=== PATIENT | male | born 1975 | race Caucasian/White ===

== ENCOUNTER 2017-06-23 21:02 | Emergency (ER) | payer SELFPAY ==
[~2017-06-23] VITALS: Ht 188 cm; Wt 106.0 kg
[~2017-06-23 21:02] MED LIST: DOXY100T PO
[2017-06-23 21:11] VITALS: BP 152/55; PULSE 62; RESP 16; TEMP 98.9; O2SAT 99
[2017-06-23] MEDS ORDERED: BACT800T5 PO (22:24)
--- NOTE | 2017-06-23 22:24 | PD ---
HPI Chief Complaint: Skin Problem Time Seen by Provider: 22:19 Travel History International Travel<30 days: No Contact w/Intl Traveler<30days: No Traveled to known affect area: No History of Present Illness HPI 41-year-old male presents to the emergency room for evaluation of abscess to his left buttocks for the past several days. States it has been getting worse every day. It is painful. He has not taken anything for pain. Patient denies fever, chills, nausea, vomiting, or spontaneous drainage. States he is in sober house and may have picked up something there. 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 Afebrile. Ambulatory. SKIN: Focused skin assessment warm/dry. There is an indurated area in the left medial buttocks which measures about 4 cm in diameter. It is fluctuant but there is no pointing or drainage. There is a zone of inflammation around it but no lymphangitis. HEAD: Normocephalic. EYES: No scleral icterus. No injection or drainage. NECK: Supple, trachea midline. No JVD or lymphadenopathy. CARDIOVASCULAR: Regular rate and rhythm without murmurs, gallops, or rubs. RESPIRATORY: Breath sounds equal bilaterally. No accessory muscle use. PSYCHIATRIC: No delusional thought processes. No hallucinations. Data Data Last Documented VS Vital Signs Date Time Temp Pulse Resp B/P (MAP) Pulse Ox O2 Delivery O2 Flow Rate FiO2 06/23/17 21:11 98.9 62 16 152/55 (87) 99 Orders Orders Lidocaine 1% Inj (50 Ml) (Xylocaine 1% I (06/23/17 22:30) MDM Medical Decision Making Medical Screen Exam Complete: Yes Emergency Medical Condition: Yes Medical Record Reviewed: Yes Differential Diagnosis Abscess, folliculitis, cellulitis Narrative Course 41-year-old male presents to the emergency room for evaluation of abscess to his left medial buttocks that started a few days ago and has been worsening. No systemic signs of infection. Physical exam reveals a 4 cm area of induration with surrounding erythema. No lymphangitis. No spontaneous drainage. Abscess was drained, see procedure details. Patient discharged with prescription for Bactrim and told to follow-up with a primary care physician or return for worsening symptoms. He understands and agrees to plan. Procedures Procedure Narrative INCISION AND DRAINAGE OF ABSCESS: The area was prepped and was sterilely draped. A subcutaneous wheal of 1% lidocaine with a total number 3 mL was used to anesthetize the area properly. A number 11 scalpel was used to make a 1 cm incision across the area of the abscess. The abscess was drained, complex loculations were broken down, and irrigated with normal saline. Cultures were obtained. Sterile dressing applied. Diagnosis Primary Impression: Left buttock abscess Referrals: Primary Care Physician Additional Instructions: Rest and drink plenty of fluids. Take Bactrim as directed, until gone. Follow up with a primary care physician. Return to emergency room for worsening symptoms, as discussed. Med/Other Pt SpecificInfo: Prescription(s) given Scripts No Active Prescriptions or Reported Meds Disposition: 01 DISCHARGE HOME Condition: Stable Diana Graham Jun 23, 2017 22:24
[2017-06-23] MEDS ORDERED: LIDOCAINE HCL 1% 50 ML VIAL INFIL ONE (22:30)
== END 2017-06-23 22:56 | disposition home or self-care (01) ==
LOC: PHEFT 21:02
DX: L02.31 Cutaneous abscess of buttock (principal); B95.62 Methicillin resistant Staphylococcus aureus infection as the cause of diseases classified elsewhere
CPT/HCPCS: 10060; 86403; 87070; 87186; 87205

== ENCOUNTER 2017-06-25 11:05 | Emergency (ER) | payer SELFPAY ==
[~2017-06-25] VITALS: Ht 188 cm; Wt 105.7 kg
[~2017-06-25 11:05] MED LIST changes: +BACT800T5 PO; -DOXY100T PO
[2017-06-25 11:19] VITALS: BP 130/69; PULSE 63; RESP 16; TEMP 97.7; O2SAT 97
--- NOTE | 2017-06-25 12:01 | PD ---
HPI Chief Complaint: Skin Problem Time Seen by Provider: 11:51 Travel History International Travel<30 days: No Contact w/Intl Traveler<30days: No Traveled to known affect area: No History of Present Illness HPI 41-year-old male here for abscess recheck. Patient reports he had an incision and drainage of an abscess on his left buttocks 2 days ago. He was prescribed Bactrim which he started taking less than 24 hours ago. He reports he became concerned when he took photographs on his phone and it appeared purplish color. He denies fever or chills. He denies increasing pain or drainage. He reports the pain is constant, mild, aggravated by sitting or palpation of the area. 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 SKIN: Focused skin assessment warm/dry. Small 1 cm healing abscess to left buttocks with central incision. There is no drainage. The area is mildly indurated. No fluctuance. No surrounding cellulitis. HEAD: Normocephalic. EYES: No scleral icterus. No injection or drainage. CARDIOVASCULAR: Regular rate and rhythm without murmurs, gallops, or rubs. RESPIRATORY: Breath sounds equal bilaterally. No accessory muscle use. GASTROINTESTINAL: Abdomen soft, non-tender, nondistended. Data Data Last Documented VS Vital Signs Date Time Temp Pulse Resp B/P (MAP) Pulse Ox O2 Delivery O2 Flow Rate FiO2 06/25/17 11:19 97.7 63 16 130/69 (89) 97 MDM Medical Decision Making Medical Screen Exam Complete: Yes Emergency Medical Condition: Yes Differential Diagnosis Abscess, cellulitis, wound recheck Narrative Course 41-year-old male here for abscess recheck. Patient had incision and drainage 2 days ago. He started his antibiotics less than 24 hours ago. He was concerned by the discoloration of the skin when he took a photograph on his phone. On exam the patient has a small 1 cm healing abscess. The area is mildly indurated with no drainage no fluctuance and no surrounding cellulitis. Patient Was instructed to continue the Bactrim. Diagnosis Primary Impression: Abscess Referrals: Primary Care Physician Additional Instructions: Continue the antibiotics as prescribed. Continue warm compresses to the area. Return to emergency department if he developed new or worsening symptoms. Disposition: 01 DISCHARGE HOME Condition: Stable Dana Barrett Jun 25, 2017 12:01
== END 2017-06-25 12:10 | disposition home or self-care (01) ==
LOC: PHEFT 11:05
DX: L02.31 Cutaneous abscess of buttock (principal); Z72.0 Tobacco use
CPT/HCPCS: 99281